=== PATIENT | female | born 1990 | race Caucasian/White ===

== ENCOUNTER 2017-12-31 12:37 | Emergency (ER) | payer BC, SELFPAY ==
[2017-12-31 12:38] VITALS: BP 134/87; PULSE 91; RESP 16; TEMP 36.8; O2SAT 100; BMI 36.5
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
[2017-12-31 13:42] LABS: Mucous, Urine 0 SEEN /hpf (<or=2+); Red Blood Cells-Urine 0 SEEN /hpf (0-5)
[2017-12-31 13:45] LABS: Absolute Lymphocyte Count 1.61 X10^3/ul (0.83-4.51); Absolute Neutrophil Count 5.4 X10^3/uL (2.0-7.7); Basophil# 0.01 X10^3/uL; Basophil% 0.1 % (0-1); Color, Urine Yellow (Yellow); Glucose, Dipstick Normal (Normal); Hematocrit 41.4 % (37-47); Hemoglobin 13.8 g/dl (12.0-15.0); Ketone-Dipstick Negative (Negative); Leukocyte Esterase-Dipstick 25 /ul (Negative); Lymphocyte # 1.61 X10^3/ul (4.0); Mean Corp Hgb Conc 33.3 g/gl (32-36); Mean Corpuscular Hgb 30.3 pg (27.0-32.0); Mean Corpuscular Volume 90.8 fL (81-99); Mean Platelet Vol. 9.3 fl (6.2-12.0); Monocyte# 0.63 X10^3/uL; Monocyte% 8.2 % (0-10); Neutrophil # 5.39 X10^3/uL (2.7-7.7); Neutrophil % 70.4 % (47-70); Nitrite-Dipstick Negative (Negative); Occult Blood-Urine Negative /ul (Negative); Platelet Count 335 K/mm3 (150-450); Protein-Dipstick Negative (Negative); RBC Distribution Width CV 11.9 % (11.6-14.6); RBC Distribution Width SD 38.9 fl (35.1-43.9); Red Blood Count 4.56 M/mm3 (4.2-5.4); Urine Bilirubin Dipstick Negative (Negative); Urine Clarity Sl. Cloudy (Clear); Urine Urobilinogen 8 mg/dl (Normal); White Blood Count 7.7 K/mm3 (4.4-11.0)
[2017-12-31 13:46] LABS: POSITIVE COUNT NO; POSITIVE DIFFERENTIAL NO; POSITIVE MORPHOLOGY NO
[2017-12-31 13:51] LABS: Bacteria 1+ /hpf (None Seen); Squamous Epithelial Cells - UA 0-5 SEEN /hpf (5-10); White Blood Cells 0-5 SEEN /hpf (0-5)
[2017-12-31 13:58] LABS: Amphetamine Urine VISTA NEGATIVE (<1000 ng/mL); Barbiturate Urine VISTA NEGATIVE (< 200 ng/mL); Benzodiazepine Urine VISTA NEGATIVE (< 200 ng/mL); Cocaine Urine VISTA NEGATIVE (< 300 ng/mL); Ecstacy Urine VISTA NEGATIVE (< 500 ng/mL); Methadone Urine VISTA NEGATIVE (< 300 ng/mL); PCP Urine VISTA NEGATIVE (< 25 ng/mL); THC Urine VISTA NEGATIVE (< 50 ng/mL); Vista UDS pH Range 7
[2017-12-31 14:02] LABS: ALB/GLOB Ratio 0.9 RATIO (0.9-2.4); AST(SGOT) 26 U/L (15-37); Alanine Aminotransfer ALT/SGPT 51 U/L (13-56); Albumin, Serum 3.8 g/dL (3.2-5.0); Alkaline Phosphatase 97 U/L (45-117); Anion Gap 8 (5-15); BUN 6 mg/dL (7-18); BUN/Creat Ratio 9.1 RATIO (10-20); Calcium,Total 8.9 mg/dL (8.5-10.1); Chloride 105 mmol/L (98-107); Creatinine, Serum 0.66 mg/dL (0.55-1.02); EST Glomerular Filtration Rate 113 mL/min (>60); Est Glom Filt Rate - Afr Amer 137 mL/min (>60); Estimated Creatinine Clearance 105.91 ml/min; Globulin 4.2 g/dL (2.2-4.2); Glucose 82 mg/dL (74-106); Potassium 3.5 mmol/L (3.5-5.1); Sodium Level 142 mmol/L (136-145)
[2017-12-31 14:05] VITALS: BP 132/73; PULSE 78; RESP 18; O2SAT 99
--- NOTE | 2017-12-31 14:06 | NURSING ---
[facility] CONTACTED FOR PT TO MAKE REPORT. PD STATED THEY WILL BE COMING TO HOSPITAL FOR WRITTEN REPORT.
[2017-12-31 14:11] LABS: Pregnancy, Serum, hCG Quali. NEGATIVE Negative (0-9 Nonpreg)
[2017-12-31] MEDS: clonazePAM 1 MG Tablet PO (14:30)
[2017-12-31 15:53] VITALS: BP 118/98; PULSE 86; RESP 18; O2SAT 99
[2017-12-31 16:44] VITALS: BP 117/88; PULSE 68; RESP 18; O2SAT 99
[2017-12-31 16:46] VITALS: BP 117/88; PULSE 68; RESP 18; O2SAT 99
[2017-12-31] MEDS: LORazepam 1 MG Tablet PO (17:50)
[2017-12-31 17:51] VITALS: BP 141/75; PULSE 91; RESP 22; O2SAT 99
== END 2017-12-31 17:54 | disposition home or self-care (01) ==
PROVIDERS: Emergency Provider Emergency Medicine
DX: R45.851 Suicidal ideations (principal); F41.9 Anxiety disorder, unspecified; F31.9 Bipolar disorder, unspecified; Z72.0 Tobacco use
CPT/HCPCS: 80053; 80307; 80320; 81001; 84703; 85025; 99283; G0480

== ENCOUNTER → 2018-02-16 11:29 | Outpatient (CLI) | payer BC, SELFPAY ==
[2018-02-16 14:01] LABS: Chlamydia Trachomatis by PCR Negative (Negative); Neisserai gonorrhoeae by PCR Negative (Negative); Probe Check PASS; Sample Adequacy Control PASS; Specimen Processing Control PASS
== END ==
PROVIDERS: Visit Provider Obstetrics & Gynecology
DX: Z11.3 Encounter for screening for infections with a predominantly sexual mode of transmission (principal)
CPT/HCPCS: 87491; 87591

== ENCOUNTER → 2018-05-12 12:35 | Outpatient (CLI) | payer BC, SELFPAY ==
[2018-05-12 13:18] LABS: Hematocrit 38.7 % (37-47); Hemoglobin 12.7 g/dl (12.0-15.0); Mean Corp Hgb Conc 32.8 g/gl (32-36); Mean Corpuscular Hgb 29.8 pg (27.0-32.0); Mean Corpuscular Volume 90.8 fL (81-99); Mean Platelet Vol. 9.1 fl (6.2-12.0); Platelet Count 287 K/mm3 (150-450); RBC Distribution Width CV 12.4 % (11.6-14.6); Red Blood Count 4.26 M/mm3 (4.2-5.4); Scan Indicated on CBC? Y/N NO; White Blood Count 6.8 K/mm3 (4.4-11.0)
[2018-05-12 13:48] LABS: Carbamazepine (Tegretol) 5.5 ug/mL (4.0-12.0)
[2018-05-12 13:49] LABS: AST(SGOT) 23 U/L (15-37); Alanine Aminotransfer ALT/SGPT 50 U/L (13-56); Albumin, Serum 3.7 g/dL (3.2-5.0); Alkaline Phosphatase 96 U/L (45-117); Anion Gap 7 (5-15); BUN 7 mg/dL (7-18); BUN/Creat Ratio 10.8 RATIO (10-20); Calcium,Total 8.6 mg/dL (8.5-10.1); Chloride 104 mmol/L (98-107); Creatinine, Serum 0.65 mg/dL (0.55-1.02); EST Glomerular Filtration Rate 116 mL/min (>60); Est Glom Filt Rate - Afr Amer 140 mL/min (>60); Globulin 3.8 g/dL (2.2-4.2); Glucose 97 mg/dL (74-106); Potassium 4.1 mmol/L (3.5-5.1); Protein, Total 7.5 g/dL (6.4-8.2); Sodium Level 141 mmol/L (136-145)
== END ==
PROVIDERS: Visit Provider Registered Nurse
DX: F39 Unspecified mood [affective] disorder (principal); Z79.899 Other long term (current) drug therapy
CPT/HCPCS: 36415; 80053; 80156; 85027

== ENCOUNTER 2018-06-29 19:53 | Emergency (ER) | payer BC, SELFPAY ==
[2018-06-29 19:54] VITALS: BP 157/85; PULSE 86; RESP 16; TEMP 36.6; O2SAT 100; BMI 39.3
[2018-06-29] MEDS: Ondansetron 4 MG/2 ML Vial IV (20:54)
[2018-06-29 20:57] LABS: Bacteria 0 SEEN /hpf (None Seen); Mucous, Urine 0 SEEN /hpf (<or=2+); White Blood Cells 0 SEEN /hpf (0-5)
[2018-06-29 21:01] LABS: Color, Urine Yellow (Yellow); Glucose, Dipstick Normal (Normal); Ketone-Dipstick Negative (Negative); Leukocyte Esterase-Dipstick 25 /ul (Negative); Nitrite-Dipstick Negative (Negative); Occult Blood-Urine Negative /ul (Negative); Protein-Dipstick 15 mg/dl (Negative); Specific Gravity, Urine 1.025 (1.002-1.030); Urine Bilirubin Dipstick Negative (Negative); Urine Clarity Clear (Clear); Urine Urobilinogen Normal (Normal)
[2018-06-29 21:10] LABS: Absolute Lymphocyte Count 3.02 X10^3/ul (0.83-4.51); Absolute Neutrophil Count 6.6 X10^3/uL (2.0-7.7); Basophil# 0.05 X10^3/uL; Basophil% 0.5 % (0-1); Eosinophil# 0.04 X10^3/uL; Eosinophils% 0.4 % (0-5); Hemoglobin 13.7 g/dl (12.0-15.0); Lymphocyte # 3.02 X10^3/ul (4.0); Lymphocyte % 29.2 % (19-41); Mean Corp Hgb Conc 32.6 g/gl (32-36); Mean Corpuscular Hgb 30.4 pg (27.0-32.0); Mean Corpuscular Volume 93.1 fL (81-99); Mean Platelet Vol. 8.9 fl (6.2-12.0); Monocyte% 5.8 % (0-10); Neutrophil # 6.61 X10^3/uL (2.7-7.7); Neutrophil % 63.8 % (47-70); Platelet Count 346 K/mm3 (150-450); RBC Distribution Width CV 12.2 % (11.6-14.6); RBC Distribution Width SD 41.3 fl (35.1-43.9); Red Blood Count 4.51 M/mm3 (4.2-5.4); White Blood Count 10.4 K/mm3 (4.4-11.0)
[2018-06-29 21:13] LABS: POSITIVE COUNT NO; POSITIVE DIFFERENTIAL NO; POSITIVE MORPHOLOGY NO
[2018-06-29 21:13] LABS: Red Blood Cells-Urine 0-5 SEEN /hpf (0-5); Squamous Epithelial Cells - UA 0-5 SEEN /hpf (5-10)
[2018-06-29 21:22] LABS: Anion Gap 6 (5-15); BUN 10 mg/dL (7-18); BUN/Creat Ratio 13.2 RATIO (10-20); Calcium,Total 8.6 mg/dL (8.5-10.1); Chloride 107 mmol/L (98-107); Creatinine, Serum 0.76 mg/dL (0.55-1.02); EST Glomerular Filtration Rate 96 mL/min (>60); Est Glom Filt Rate - Afr Amer 117 mL/min (>60); Estimated Creatinine Clearance 91.16 ml/min; Glucose 67 mg/dL (74-106); Potassium 3.6 mmol/L (3.5-5.1); Sodium Level 140 mmol/L (136-145)
[2018-06-29 21:26] LABS: Pregnancy, Serum, hCG Quali. NEGATIVE Negative (0-9 Nonpreg)
--- NOTE | 2018-06-29 22:42 | ED.DCSUM_ITS ---
- ER Visit Summary Date of Service: 06/29/18 Chief Complaint: Fever, vomiting History of Present Illness: The patient is a 28 F who was at work this afternoon. She states she felt very warm and went outside to try to cool off. She came back and she still felt warm, became lightheaded, had nausea and vomiting ?6 episodes. She states her temperature was 103. She did take ibuprofen prior to arrival. Patient states that she was seen at urgent care on the second for a spot on her left arm that she was told was MRSA. She states lesion looks like it is improving. She was told, however, that if she develops fever she is to go the emergency room. Physical Examination: Blood pressure is 157/85, temperature 97.9, heart rate 86 , respiratory rate 16, pulse ox 100% on room air. Patient sitting upright in bed. She is nontoxic appearing. Head neck examination is normal. Heart is regular rate and rhythm. Lung sounds are clear. Abdomen is soft nontender. Left upper extremity examination reveals an area of folliculitis of the left proximal arm. There is no abscess. There is no cellulitis. Test Results: CBC and chemistry studies significant for glucose of 67. Urinalysis is normal. test is negative. Emergency Department Course and Treatment: Patient was given IV fluids and Zofran. After return of her blood work I did take her Sprite to drink. She has been able tolerate this. She will be given Zofran along with Pepcid as she does report her stomach being upset. She is to follow bland diet. She is to continue her antibiotics. Treatment Plan: [] Disposition: Discharge Impression: 1. Vomiting, improved 2. Reported fever This note was generated with [employer] dictation software. It may contain incorrect words, spelling, and punctuation that were not noted in review of the chart prior to signing ED Disposition - Plan for ED Patient: Chief Complaint: General Illness Referrals: Care Physician,No Primary [Primary Care Provider] -
--- NOTE | 2018-06-29 22:42 | ED.DEP ---
ED Disposition - Plan for ED Patient: Disposition: Home or Assisted Living Chief Complaint: General Illness Instructions: ED Nausea Vomiting Prescriptions: Ondansetron [Zofran Odt] 4 mg PO Q8H PRN PRN #10 tablet PRN Reason: Nausea Famotidine [Pepcid] 20 mg PO BID #28 tablet Referrals: Delaney Martinez MD [STAFF PHYSICIAN] - As Needed
[2018-06-29] MEDS: Ondansetron ODT 4 MG Tablet PO (22:56)
[2018-06-29 22:59] VITALS: BP 114/75; PULSE 78; RESP 18; O2SAT 100
== END 2018-06-29 22:59 | disposition home or self-care (01) ==
PROVIDERS: Emergency Provider Emergency Medicine
DX: R11.2 Nausea with vomiting, unspecified (principal); R50.9 Fever, unspecified; F31.9 Bipolar disorder, unspecified; Z72.0 Tobacco use; Z86.14 Personal history of Methicillin resistant Staphylococcus aureus infection
CPT/HCPCS: 80048; 81001; 84703; 85025; 99284; J7030; J7040; J2405

== ENCOUNTER 2024-03-26 12:55 | Emergency (ER) | payer MEDICAID, SELFPAY ==
[2024-03-26 12:56] VITALS: BP 128/80; PULSE 77; RESP 18; TEMP 37; O2SAT 98; BMI 42.3
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
[2024-03-26] MEDS: Acetaminophen 500 MG Tablet 1000 MG PO (13:34)
[2024-03-26 14:32] VITALS: BP 138/76; PULSE 82; RESP 16; TEMP 36.7; O2SAT 97
== END 2024-03-26 14:33 | disposition home or self-care (01) ==
PROVIDERS: Emergency Provider Emergency Medicine; Visit Provider Emergency Medicine
DX: S09.90XA Unspecified injury of head, initial encounter (principal); F31.9 Bipolar disorder, unspecified; S16.1XXA Strain of muscle, fascia and tendon at neck level, initial encounter; V43.52XA Car driver injured in collision with other type car in traffic accident, initial encounter; Y92.410 Unspecified street and highway as the place of occurrence of the external cause; F41.9 Anxiety disorder, unspecified
CPT/HCPCS: 70450; 72125; 99282

== ENCOUNTER → 2024-12-16 | Outpatient (CLI) | payer BC, SELFPAY ==
[2024-12-22 10:08] LABS: HPV APTIMA, High Risk Negative (Negative)
== END | disposition home or self-care (01) ==
LOC: LABSPEC 14:21
PROVIDERS: Referring Provider Advanced Practice Midwife; Visit Provider Advanced Practice Midwife
DX: Z12.4 Encounter for screening for malignant neoplasm of cervix (principal)
CPT/HCPCS: 87624; 88175; G0145

== ENCOUNTER → 2025-01-06 | Outpatient (CLI) | payer BC, SELFPAY ==
[2025-01-06 11:57] LABS: Cholesterol 209 mg/dL (200); High Density Lipoprotein 45 mg/dL; Triglycerides 188 mg/dL; Very Low Density Lipoprotein 38 mg/dL (5-40)
[2025-01-06 14:26] LABS: Hemoglobin A1c 5.4 % (3.8-5.6)
[2025-01-12 12:08] LABS: Testosterone Free 2.4 pg/mL (0.0-4.2)
== END | disposition home or self-care (01) ==
LOC: BWCLAB 08:20
PROVIDERS: Referring Provider Advanced Practice Midwife; Visit Provider Advanced Practice Midwife
DX: R63.5 Abnormal weight gain (principal); Z13.220 Encounter for screening for lipoid disorders
CPT/HCPCS: 36415; 80061; 83036; 84402; 84443